=== PATIENT | male | born 1995 | race Hispanic/Latino ===

== ENCOUNTER 2017-09-19 22:37 | Emergency (ER) | payer OTHER ==
[2017-09-19] MEDS ORDERED: Sodium Chloride 0.9% 1,000 ML IV STA (22:44)
[2017-09-19] MEDS ORDERED: Morphine 4 MG/ML VIAL ONE (22:56)
[2017-09-19 23:06] LABS: BASO # 0.1 K/uL (0.0-0.2); BASO % 0.4 % (0.0-2.0); EOS # 0.9 K/uL (0.0-0.7); EOS % 5.5 % (0.0-4.0); HEMOGLOBIN 13.5 g/dL (12.0-18.0); LYMPH # 4.1 K/uL (1.0-4.3); LYMPH % 26.6 % (20.0-40.0); MEAN CELL VOLUME 87.5 fl (80.0-94.0); MEAN CORPUSCULAR HEMOGLOBIN 28.7 pg (27.0-31.0); MEAN CORPUSCULAR HGB CONC 32.9 g/dL (33.0-37.0); MEAN PLATELET VOLUME 8.4 fl (7.2-11.7); MONO # 1.2 K/uL (0.0-0.8); NEUT # 9.2 K/uL (1.8-7.0); NEUT % 59.5 % (50.0-75.0); RBC 4.69 Mil/uL (4.40-5.90); RED CELL DISTRIBUTION WIDTH 13.9 % (11.5-14.5); WHITE BLOOD COUNT 15.5 K/uL (4.8-10.8)
[2017-09-19 23:18] LABS: BLOOD UREA NITROGEN 23 mg/dl (9-20); CALCIUM 8.8 mg/dL (8.4-10.2); GFR AFRICAN-AMERICAN > 60; GFR NON-AFRICAN AMERICAN > 60
[2017-09-19 23:24] LABS: INR 1.1 (0.9-1.2); PARTIAL THROMBOPLASTIN TIME 20.9 Seconds (25.6-37.1); PROTHROMBIN TIME 12.1 Seconds (9.8-13.1)
[2017-09-19] MEDS ORDERED: HYDROmorphone 0.5 mg/0.5 ml ISec ONE (23:29)
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
[2017-09-19] MEDS ORDERED: HYDROmorphone 0.5 mg/0.5 ml ISec IVP STA (23:43)
[2017-09-20] MEDS ORDERED: HYDROmorphone 0.5 mg/0.5 ml ISec ONE (00:11)
[2017-09-20] MEDS ORDERED: HYDROmorphone 1 mg/ml ISec IVP STA ×3 (00:20→02:34)
[2017-09-20] MEDS ORDERED: Sodium Chloride 0.9% 50 ML IV ONE (00:26)
[2017-09-20] MEDS ORDERED: Iohexol 300 100 ML IJ ONE (00:26)
[2017-09-20] MEDS ORDERED: Gentamicin 100mg/100ml NS 100 MG/100 ML BAG IVPB STA (00:45)
[2017-09-20] MEDS ORDERED: Tdap Vaccine 0.5 ml Vial (10-64 yrs) IM ONE (01:00)
--- NOTE | 2017-09-20 01:08 | CP.PCM.HP ---
Past Patient History - Past Social History Smoking Status: Never Smoked - PSYCHIATRIC Hx Psychophysiologic Disorder: No Hx Substance Use: No Meds Allergies/Adverse Reactions: Allergies Allergy/AdvReac Type Severity Reaction Status Date / Time amoxicillin Allergy RASH Verified 09/19/17 22:41 Penicillins Allergy RASH Verified 09/19/17 22:41 Results - Vital Signs Recent Vital Signs: Last Vital Signs Temp 98.1 F 09/19/17 22:41 Pulse 84 09/19/17 22:41 Resp 18 09/19/17 22:41 BP 117/92 H 09/19/17 22:41 Pulse Ox 100 09/20/17 01:02 - Labs Result Diagrams: 09/19/17 22:50 09/19/17 22:50 Labs: Laboratory Results - last 24 hr 09/19/17 09/19/17 09/19/17 22:50 22:50 22:50 WBC 15.5 H RBC 4.69 Hgb 13.5 Hct 41.0 MCV 87.5 MCH 28.7 MCHC 32.9 L RDW 13.9 Plt Count 231 MPV 8.4 Neut % (Auto) 59.5 Lymph % (Auto) 26.6 [place] % (Auto) 8.0 Eos % (Auto) 5.5 H Baso % (Auto) 0.4 Neut # (Auto) 9.2 H Lymph # (Auto) 4.1 [place] # (Auto) 1.2 H Eos # (Auto) 0.9 H Baso # (Auto) 0.1 PT 12.1 INR 1.1 APTT 20.9 L Sodium 137 Potassium 3.4 L Chloride 102 Carbon Dioxide 23 Anion Gap 15 BUN 23 H Creatinine 0.9 Est GFR ( Amer) > 60 Est GFR (Non-Af Amer) > 60 Random Glucose 148 H Calcium 8.8 Assessment & Plan - Date & Time Date: 09/20/17 Time: 01:08
[2017-09-20] MEDS ORDERED: Sodium Chloride 0.9% 1,000 ML IV STA (01:58)
[2017-09-20 03:08] VITALS: BP 156/59; PULSE 96; RESP 16; TEMP 98.3
--- NOTE | 2017-09-20 08:33 | RAD ---
Date of service: 09/19/2017 PROCEDURE: Left Ankle Radiographs. Study is limited by overlying clothing artifact which diminishes fine soft tissue and bone detail HISTORY: pain COMPARISON: Correlation made with concurrent radiographs of the left tibia and fibula. FINDINGS: BONES: Displaced fractures of the distal 1/2 -- 1/3 of the tibia fibula not appreciated on this study. Please refer to concurrent radiographs and corresponding report of the left tibia/fibula. Remaining osseous structures appear intact. JOINTS: Normal. No osteoarthritis. Ankle mortise maintained. Talar dome intact SOFT TISSUES: Normal. OTHER FINDINGS: None. IMPRESSION: Displaced fractures of the distal 1/2 -- 1/3 of the tibia fibula not appreciated on this study. Please refer to concurrent radiographs and corresponding report of the left tibia/fibula. Remaining osseous structures appear intact.
--- NOTE | 2017-09-20 08:39 | RAD ---
Date of service: 09/19/2017 PROCEDURE: Left Femur Radiographs. HISTORY: pain COMPARISON: Correlation made with concurrent radiographs of the left tibia and fibula and left hip. TECHNIQUE: AP Radiographs of the left femur. FINDINGS: FEMUR: Superior dislocation of the left femoral head with respect to the acetabulum. . Comminuted fracture of the left acetabulum acetabulum. SOFT TISSUES: Normal. OTHER FINDINGS: None. IMPRESSION: Superior dislocation left femoral head neck the acetabulum. Comminuted fracture of the left acetabulum
--- NOTE | 2017-09-20 09:31 | RAD ---
Date of service: 09/19/2017 PROCEDURE: Radiographs of the left tibia and fibula. HISTORY: injury COMPARISON: Comparison made with concurrent radiographs of the ankle and femur. TECHNIQUE: Frontal and lateral views obtained. FINDINGS: BONES: There are comminuted oblique fractures traversing the distal 1/2 -- 1/3 of the shafts of the left tibia and fibula with lateral displacement of the proximal margins of the distal fracture fragments, particularly the tibial fragment which is displaced approximately 1/2 -- 1/3 width of the shaft. JOINT SPACES: Joint spaces appear preserved so far as can be seen. OTHER FINDINGS: None. IMPRESSION: Comminuted displaced oblique fractures traversing the distal 1/2--1/3 shafts of the left tibia and fibula as above
--- NOTE | 2017-09-20 09:32 | RAD ---
PROCEDURE: Left Hip X-ray Radiographs. HISTORY: injury COMPARISON: None. FINDINGS: BONES: There is superior dislocation of the left femoral head with respect to the acetabulum. . There is also a comminuted fracture of the left acetabulum. No other definitive fractures JOINTS: As above SOFT TISSUES: Normal. OTHER FINDINGS: None. IMPRESSION: Superior dislocation of the left femoral head with respect to the acetabulum. . There is also a comminuted fracture of the left acetabulum. No other definitive fractures
--- NOTE | 2017-09-20 16:39 | CT ---
Date of service: 09/20/2017 PROCEDURE: CT Chest, Abdomen and Pelvis with intravenous contrast HISTORY: Trauma COMPARISON: None. TECHNIQUE: CT scan chest and pelvis performed in standard fashion following intravenous contrast injection. Additional 2D sagittal and coronal reformats provided IV dose administered: 95 cc Omnipaque 300 Radiation dose: Total exam DLP = 631.73 mGy-cm. This CT exam was performed using one or more of the following dose reduction techniques: Automated exposure control, adjustment of the mA and/or kV according to patient size, and/or use of iterative reconstruction technique. FINDINGS: CT CHEST WITH CONTRAST: LUNGS: Clear. No nodule, mass or consolidation. MEDIASTINUM: Unremarkable. Normal caliber aorta and pulmonary arterial trunk. No aortic dissection. Normal size heart. LYMPH NODES: Unremarkable. PLEURA: Unremarkable. No pneumothorax. No pleural fluid. BONES: Unremarkable. OTHER FINDINGS: None. CT ABDOMEN AND PELVIS: LIVER: Unremarkable. No gross lesion or ductal dilatation. GALLBLADDER AND BILE DUCTS: Unremarkable. PANCREAS: Unremarkable. No gross lesion or ductal dilatation. SPLEEN: Unremarkable. ADRENALS: No adrenal the the the KIDNEYS AND URETERS: Kidneys demonstrate symmetric nephrograms. There appears to be a punctate nonobstructing calcification calcifications lower pole left kidney. No evidence of nephrolithiasis or hydronephrosis. VASCULATURE: Unremarkable. No aortic aneurysm. BOWEL: Unremarkable. No obstruction. No gross mural thickening. APPENDIX: Normal-appearing appendix PERITONEUM: Unremarkable. No free fluid. No free air. LYMPH NODES: No significant intra abdominal adenopathy. BLADDER: Physiologically distended. No intraluminal urinary bladder calculi. REPRODUCTIVE: Unremarkable. BONES: There is comminuted fracture of the left acetabulum with superior and posterior displacement of the left femoral head through the large residual acetabular defect. Fracture involves the at left the ischial tuberosity. The SI joints appear intact. No other fractures are identified. There is significant surrounding infiltration presumably representing some combination edema hemorrhage. There are a few small bubbles of air seen within the subcutaneous tissues adjacent to the anterior margin of the acetabular rim and femoral neck. Soft tissue within the acetabulum could represent edema or hemorrhage. Consider followup MRI. OTHER FINDINGS: None. IMPRESSION: Comminuted fracture of the left acetabulum with superior and posterior displacement of the femoral head through the acetabular defect. There is fracture of the left ischial tuberosity. SI joints appear intact. Edema and hemorrhage surround the seen within the surrounding soft tissues of the left pelvis and proximal femur. There are a few small bubbles of air seen within the subcutaneous tissues adjacent to the anterior margin of the acetabular rim and femoral neck. Soft tissue within the acetabulum could represent edema or hemorrhage. Consider followup MRI. No acute intra thoracic or intra abdominal posttraumatic sequela. There appear to be at least 2 tiny punctate calcifications nonobstructing calcification lower pole left kidney. Preliminary report provided by overnight radiology service. Note this report was placed in PA review folder for followup
--- NOTE | 2017-09-20 16:48 | CT ---
Date of service: 09/20/2017. PROCEDURE: CT of the left lower extremity from mid pelvis region to the distal foot. HISTORY: Trauma COMPARISON: Correlation made with prior plain film radiographs as well as CT scan of the abdomen and pelvis. TECHNIQUE: Contiguous helical/transaxial images of the left hip were obtained. Coronal and sagittal reformats were generated. This CT exam was performed using one or more of the following dose reduction techniques: Automated exposure control, adjustment of the mA and/or kV according to patient size, and/or use of iterative reconstruction technique. . FINDINGS: BONES: Re- demonstrated is a comminuted fracture of the left acetabulum with the superior and posterior displacement of the left femoral head through the large acetabular defect. Soft tissue within the acetabulum likely represents some combination of hemorrhage and edema. . There also appear to be a few fracture fragments seen within the joint spaces. Fracture also involves the left ischial tuberosity. Several tiny bubbles of air seen within the anterior soft tissues adjacent to the anterior margin of the acetabular rim and anterior to the displaced left femoral head/neck region. SI joints intact. Knee joint appears intact. There are oblique comminuted fractures of the distal 1/2 --1/3 left tibia and fibula. The proximal aspect of the distal tibial fragment is the displaced laterally. The proximal aspect of the distal fibular fragment is displaced posteriorly and slightly laterally as well. Surrounding soft tissue swelling and hemorrhage. No other fractures are identified. IMPRESSION: Comminuted fracture of the left acetabulum with the superior and posterior displacement of the left femoral head through the large acetabular defect. Soft tissue within the acetabulum likely represents some combination of hemorrhage and edema. . There also appear to be a few fracture fragments seen within the joint spaces. Fracture also involves the left ischial tuberosity. Several tiny bubbles of air seen within the anterior soft tissues adjacent to the anterior margin of the acetabular rim and anterior to the displaced left femoral head/neck region. SI joints intact. Oblique comminuted fractures of the distal 1/2 --1/3 left tibia and fibula. The proximal aspect of the distal tibial fragment is the displaced laterally. The proximal aspect of the distal fibular fragment is displaced posteriorly and slightly laterally as well. Surrounding soft tissue swelling and hemorrhage. No other fractures are identified.
[2017-09-20 20:01] VITALS: O2SAT 100
== END 2017-09-20 03:10 | disposition short-term general hospital (02) ==
LOC: H.ER 22:37 → UNDOADMIN 09-20 00:05 → H.ERHOLD 09-20 00:05
DX: Z04.1 Encounter for examination and observation following transport accident (principal); V23.4XXA Motorcycle driver injured in collision with car, pick-up truck or van in traffic accident, initial encounter; Y92.410 Unspecified street and highway as the place of occurrence of the external cause
CPT/HCPCS: 71260; 73501; 73552; 73590; 73610; 73700; 74177; 80048; 85025; 85610; 85730; 86850; 86900; 96361; 96365; 96375; 96376; 99284; G0480; J1170; J1580; J2270; J2405; J7030; Q9967